=== PATIENT | female | born 1990 | race Hispanic/Latino ===

== ENCOUNTER 2024-07-12 21:12 | Emergency (ER) | payer SELFPAY ==
[2024-07-12 21:28] VITALS: BP 116/49
[2024-07-12 21:53] LABS: Urine Albumin Negative (Neg - Trace); Urine Bilirubin Negative (Negative); Urine Character Clear (Clear); Urine Color Yellow; Urine Glucose Negative (Negative); Urine Ketone Negative (Negative); Urine Leukocyte Negative (Negative); Urine Nitrite Negative (Negative); Urine Occult Blood Negative (Negative); Urine Urobilinogen Negative (Neg - 1+)
[2024-07-12 21:56] LABS: HCG, Urine Qualitative Screen Negative
[2024-07-13 01:35] VITALS: BP 92/52
--- NOTE | 2024-07-13 02:42 | ED.GENMED ---
History of Present Illness
General
Chief Complaint: Anal/Rectal Problem
Time Seen by Provider: 07/13/24 01:21
History of Present Illness
History of Present Illness:
33-year-old female without significant past medical history presenting for rectal and vaginal discomfort. Patient reports symptoms for the past several days. Notes that she is having rectal pain whenever she passes her stool. Also notes some
dryness of the vagina. Denies any significant discharge. Denies any concern for STD. Denies bowel, vomiting, fever. Denies chest pain or difficulty breathing. Denies ever having the symptoms in the past. Reports that she has had to strain to
have bowel movements, so has seen some blood in her stool. Denies additional acute medical complaints
Patient Greenlandic-speaking with interpretation by cryptographic clerk device
Phy Exam
Physical Exam
Physical Exam:
General: Well-appearing, no clinical signs of dehydration, nontoxic and in no acute distress
HEENT: protecting airway
Neck: appears supple
CV: Normal heart rate
Resp: No accessory muscle use, no increased work of breathing
Abd: Soft and non-distended, no tenderness to palpation
Extremities: No deformities, no swelling
Neuro: alert, no focal neurologic deficit
: Normal external vagina with no lesions. Speculum exam performed, no significant vaginal discharge.
Rectal: Anal fissure at the 3 o'clock position. No bleeding.
Psych: Normal affect
Skin: Intact
Course
Orders/Labs/Results
Orders:
Orders
07/12/24 21:41
Test Result ONCE
07/12/24 21:45
HCG, Urine Qualitative Screen Urgent
Date Specimen was Collected: 07/12/24
Time Specimen was Collected: 21:42
Urinalysis Reflex To Culture Urgent
Date Specimen was Collected: 07/12/24
Time Specimen was Collected: 21:42
07/13/24 02:23
Chlamydia/GC by PCR Urgent
OLIVIA Source: Vagina
Specimen Description:
Source:: CERVIX
Date Specimen was Collected: 07/13/24
Time Specimen was Collected: 02:20
Trichomonas - Wet Prep Urgent
OLIVIA Source: Vagina
Specimen Description:
Date Specimen was Collected: 07/13/24
Time Specimen was Collected: 02:20
Vital Signs
Initial and Last Documented VS:
Initial Vital Signs
Temp Pulse Resp BP Pulse Ox
98.9 F 73 16 116/49 100
07/12/24 21:28 07/12/24 21:28 07/12/24 21:28 07/12/24 21:28 07/12/24 21:28
Last Documented Vital Signs
Temp Pulse Resp BP Pulse Ox
98.8 F 63 14 92/52 96
07/13/24 01:35 07/13/24 01:35 07/13/24 01:35 07/13/24 01:35 07/13/24 01:35
MDM/Problems Addressed
MDM/Problems Addressed:
33-year-old female without significant past medical history presenting to the emergency department for rectal pain. Vital signs are normal.
On exam patient is well-appearing, no acute distress or discomfort. Unremarkable pelvic examination. No significant discharge. Swabs sent. Patient had urinalysis, no sign of or infection. No tenderness to the abdomen or pelvis. On
rectal exam, evidence of anal fissure with suspected source of patient's discomfort. No active bleeding. Feel stable for discharge with outpatient supportive therapy. Will prescribe cream as well as a stool softener. Patient educated on sitz
bath's. Return precautions discussed and patient verbalized understanding
*Critical Care Note
Total Time (30-74mins, 75-104mins- exclusive of procedures): Not Applicable
ED Attending Note
-
Portions of this chart may have been created with voice recognition software.� Occasional wrong word or��sound alike� substitutions may have occurred due to the inherent limitations of voice recognition software.
Discharge Plan
Departure
Patient Disposition: Home (Routine Discharge)
Date of Disposition: 07/13/24
Time of Disposition: 02:41
Patient with high blood pressure during this ER visit?: No
Condition: Good
Discharge Problem:
Acute anal fissure
Instructions: How to Do a Sitz Bath, Anal Fissure, Adult ED
Prescriptions:
New
lidocaine HCl 2 % cream
1 applic topical BID PRN (Reason: Pain) Qty: 118 0RF
polyethylene glycol 3350 [Miralax] 17 gram/dose powder
4 g PO DAILY Qty: 119 0RF
Referrals:
NONE,* [Family Provider] -
Activity Restrictions/Additional Instructions:
You were seen in the emergency department for rectal pain
You were found to have an anal fissure. You were prescribed a cream and a stool softener. Please also try doing sitz bath's
Please follow-up closely with your primary care physician.
Return to the emergency department for any worsening of your symptoms, or any development of chest pain, difficulty breathing, abdominal pain with persistent vomiting and inability to tolerate food or liquid by mouth (concern for dehydration),
weakness, headache or confusion, fever greater than 100.4, or any additional symptoms that are concerning to you.
Thank you for choosing [facility].
Interventions
Interventions:
*Risk Screen - Suicide Last Done: 07/12/24 21:28
*General Assessment Last Done: 07/12/24 21:28
*Neglect/Abuse Screening Last Done: 07/12/24 21:28
*ED COVID-19 Vaccine History Last Done: 07/12/24 21:28
ED-Female Genitourinary Assessment Last Done: 07/13/24 01:35
ED-Skin Assessment Last Done: 07/13/24 01:35
Discharge Date and Time
Print Language: KAZAKH
== END 2024-07-13 03:15 | disposition home or self-care (01) ==
LOC: EMR 21:12
PROVIDERS: EMERGENCY PHYSICIAN Student in an Organized Health Care Education/Training Program
DX: K60.0 Acute anal fissure (principal)
CPT/HCPCS: 99283; 81003; 81025; 87210; 87491; 87591

== ENCOUNTER 2024-08-15 12:40 | Emergency (ER) | payer SELFPAY ==
[2024-08-15 12:42] VITALS: BP 112/70
[2024-08-15 13:08] LABS: % Basophils 0.2 % (0-2); % Eosinophils 0.4 % (0-6); % Immature Granulocytes 0.4 % (0-0.5); % Lymphocytes 37.5 % (20.5-51.1); % Monocytes 3.9 % (1.7-9.3); % Neutrophils 57.6 % (42.2-75.2); Absolute Monocytes 0.2 10^3/uL (0.1-0.6); Absolute Neutrophils 3.1 10^3/uL (1.4-6.5); Hematocrit 37.6 % (37.0-47.0); Hemoglobin 13.5 g/dL (12.0-16.0); Mean Corp Hgb Conc. 35.9 g/dL (33.0-37.0); Mean Corpuscular Hgb 30.1 pg (27.0-31.0); Mean Corpuscular Volume 83.7 fL (81.0-99.0); Mean Platelet Volume 9.1 fL (7.4-10.4); Nucleated Red Blood Cells % 0 %; Platelet Count 293 10^3/uL (130-400); Red Blood Cell Count 4.49 10^6/uL (4.20-5.40); Red Cell Dist. Width 12.7 % (11.5-14.5); White Blood Cell Count 5.3 10^3/uL (4.8-10.8)
[2024-08-15 13:21] LABS: HCG, Serum Qualitative Screen Negative
[2024-08-15 13:29] LABS: ALT (SGPT) 33 U/L (0-35); AST (SGOT) 31 U/L (14-36); Albumin 4.6 g/dl (3.5-5.0); Alkaline Phosphatase 94 U/L (38-126); Blood Urea Nitrogen 7 mg/dl (7-17); Calcium 9.1 mg/dl (8.4-10.2); Carbon Dioxide 22 mmol/L (22-30); Chloride 107 mmol/L (98-107); Glucose 93 mg/dl (70-99); Lipase 113 U/L (23-300); Potassium 4.1 mmol/L (3.5-5.1); Sodium 139 mmol/L (135-145); Total Bilirubin 0.7 mg/dl (0.2-1.3); Total Protein 7.4 g/dl (6.3-8.2); Urine Albumin Negative (Neg - Trace); Urine Bilirubin Negative (Negative); Urine Character Clear (Clear); Urine Color Yellow; Urine Glucose Negative (Negative); Urine Ketone Negative (Negative); Urine Leukocyte Negative (Negative); Urine Nitrite Negative (Negative); Urine Occult Blood Negative (Negative); Urine Specific Gravity 1.015 (<1.030); Urine Urobilinogen Negative (Neg - 1+); eGFR > 60.00
--- NOTE | 2024-08-15 14:38 | ED.GENMED ---
History of Present Illness
General
Chief Complaint: Abdominal Pain
Source: patient
Exam Limitations: other (Ecuadorean-speaking, propagator used)
Time Seen by Provider: 08/15/24 14:04
Nursing documentation reviewed up to this point in time: agreed with
History of Present Illness
History of Present Illness:
34-year-old female presenting to the emergency department today with concerns of lower abdominal discomfort. Has had some degree of discomfort over the past 2 months but noticed worsening symptoms over the past few days mainly to the left lower
quadrant. Denies vaginal symptoms has not of some intermittent blood in her stool. Denies any chest pain shortness of breath or vomiting.
Review of Systems
Review of Systems
Allergies reviewed?: Yes
All Other Systems: ROS reviewed and negative except as documented in HPI and ROS
Phy Exam
Physical Exam
Physical Exam:
GENERAL: Alert , in no apparent distress
EYE: pupils equal and reactive
NECK: Supple, no significant adenopathy.
ENT: o/p clr, mmm.
CARDIAC: Regular rate and rhythm .
LUNGS: Clear breath sounds bilaterally, no acute respiratory distress, no wheezes/rales/rhonchi
ABDOMEN: Mild reproducible symptoms to the left lower quadrant to palpation otherwise soft benign abdomen soft, without focal tenderness, no r/g, no cvat
NEUROLOGICAL: Alert and oriented, no focal neuro deficits
SKIN: Warm and dry, skin intact.
MUSCULOSKELETAL: No edema, well perfused.
PSYCH: Normal and appropriate interaction.
Course
Orders/Labs/Results
Orders:
Orders
08/15/24 12:50
Test Result ONCE
08/15/24 12:57
Comprehensive Metabolic Panel Urgent
HCG, Serum Qualitative Screen Urgent
Comment: Notify provider if positive test present
Lipase Urgent
Urinalysis Reflex To Culture Urgent
Date Specimen was Collected: 08/15/24
Time Specimen was Collected: 12:50
08/15/24 12:58
Type+Screen Urgent
Complete Blood Count/With Diff Urgent
08/15/24 14:24
CT Abd/Pel (IV only)-DH only Urgent
Comment:
Reason For Exam: llq abd pain
Dicyclomine HCl [Bentyl] 20 mg IM NOW STA
Famotidine [Pepcid] 20 mg IV NOW STA
08/15/24 14:59
ABO2 Urgent
BBK Wristband Number:
Associate notified that ABO2 has been ordered: [id number]
Date: 08/15/24
Time: 13:11
Ward Helper ID: [id number]
08/15/24 12:58
08/15/24 12:57
Vital Signs
Initial and Last Documented VS:
Initial Vital Signs
Temp Pulse Resp BP Pulse Ox
98.1 F 72 16 112/70 96
08/15/24 12:42 08/15/24 12:42 08/15/24 12:42 08/15/24 12:42 08/15/24 12:42
Last Documented Vital Signs
Temp Pulse Resp BP Pulse Ox
98.3 F 60 16 94/57 100
08/15/24 15:41 08/15/24 15:41 08/15/24 15:41 08/15/24 15:41 08/15/24 15:41
MDM/Problems Addressed
MDM/Problems Addressed:
34-year-old female presenting to the emergency department today with concerns of lower abdominal discomfort mainly to the left lower quadrant worsening over the past few days some degree of discomfort over the past 2 months. On arrival vital signs
are normal patient no distress labs unremarkable urinalysis normal. CT scan without emergent findings labs unremarkable. Patient without evidence of any emergent pathology advised for close outpatient follow-up with GI return precautions given.
*Critical Care Note
Total Time (30-74mins, 75-104mins- exclusive of procedures): Not Applicable
ED Attending Note
-
Portions of this chart may have been created with voice recognition software.� Occasional wrong word or��sound alike� substitutions may have occurred due to the inherent limitations of voice recognition software.
Discharge Plan
Departure
Patient Disposition: Home (Routine Discharge)
Date of Disposition: 08/15/24
Time of Disposition: 16:03
Patient with high blood pressure during this ER visit?: No
Condition: Good
Covid-19: Not Applicable
Discharge Problem:
Abdominal pain
Instructions: Abdominal Pain
Prescriptions:
New
dicyclomine 20 mg tablet
20 mg PO QID PRN (Reason: abdominal pain) Qty: 14 0RF
No Action
lidocaine HCl 2 % cream
1 applic topical BID PRN (Reason: Pain) Qty: 118 0RF
polyethylene glycol 3350 [Miralax] 17 gram/dose powder
4 g PO DAILY Qty: 119 0RF
Referrals:
Nathaly Vasquez MD [Active] - Follow up in 5-7 days
Activity Restrictions/Additional Instructions:
You came to the emergency department today with concerns of abdominal pain. Here you had a reassuring assessment. Please follow closely with the GI doctor. Return to the emergency department any worsening, new or concerning symptoms.
Interventions
Interventions:
*Risk Screen - Suicide Last Done: 08/15/24 12:42
*General Assessment Last Done: 08/15/24 12:42
*Neglect/Abuse Screening Last Done: 08/15/24 12:42
*ED COVID-19 Vaccine History Last Done: 08/15/24 12:42
TG-Gwpxkb-Xxzfziavlq Assessment Last Done: 08/15/24 15:02
Discharge Date and Time
Print Language: SWEDISH
[2024-08-15] MEDS: PEPCID 20 MG IV (14:54)
[2024-08-15] MEDS: BENTYL 20 MG IM (14:54)
[2024-08-15 15:41] VITALS: BP 94/57
== END 2024-08-15 16:33 | disposition home or self-care (01) ==
LOC: EMR 12:40
PROVIDERS: Student in an Organized Health Care Education/Training Program; EMERGENCY PHYSICIAN Emergency Medicine
DX: R10.32 Left lower quadrant pain (principal)
CPT/HCPCS: 96374; 96372; 99284; 74177; 80053; 81003; 83690; 84703; 85025; 86850; 86900; 86901; Q9967